=== PATIENT | male | born 1960 | race Caucasian/White ===

== ENCOUNTER 2018-02-14 12:30 | Emergency (ER) | payer SELFPAY ==
[~2018-02-14] VITALS: Ht 185.4 cm; Wt 102.1 kg
[2018-02-14] MEDS ORDERED: Tetracaine 0.5% Opth 4ml Soln RIGHT EYE ONE (13:15)
[2018-02-14] MEDS ORDERED: Fluorescein Strips RIGHT EYE ONE (13:15)
--- NOTE | 2018-02-14 14:01 | Emergency Room Report ---
History of Present Illness General Chief Complaint: Eye Problems Source: Patient Present Illness HPI 57-year-old male patient presents ER complaining of right eye pain. photophobia during this time. reports was seen by urgent care 2 days ago prescribed with acyclovir and ciprofloxacin eyedrops for treatment of symptoms. Reports history of contacts. Reports no incontinence currently. Reports pain in eye. Reports eye discharge during this time. Denies history of glaucoma. Denies fever, chest pain, shortness of breath, vision loss. Denies other acute symptoms. Denies vertigo. Not up to date on tetanus vaccinations. Denies injury or trauma. Allergies: Coded Allergies: No Known Allergies (Unverified , 02/14/18) Patient History Past Medical History: see triage record Reviewed Nursing Documentation: PMH: Agreed; PSxH: Agreed Nursing Documentation-PMH Past Medical History: No Stated History Review of Systems All Other Systems: negative except mentioned in HPI Physical Exam Vital Signs Date Time Temp Pulse Resp B/P (MAP) Pulse Ox O2 Delivery O2 Flow Rate FiO2 02/14/18 12:45 98.3 105 18 146/83 96 Room Air 98.2 Sp02 EP Interpretation: reviewed, normal General Appearance: well appearing, no apparent distress, alert, GCS 15, non- toxic Head: normocephalic, atraumatic Eyes: right eye fluoroscene uptake - 2 mm linear in 9 o clock position; bilateral eye normal inspection, bilateral eye PERRL, bilateral eye EOMI ENT: hearing grossly normal, normal pharynx, no angioedema, normal voice, uvula midline, moist mucus membranes Neck: full range of motion Respiratory: lungs clear, normal breath sounds, no rhonchi, no respiratory distress, no accessory muscle use, no wheezing, speaking full sentences Cardiovascular #1: regular rate, rhythm, no edema Gastrointestinal: non tender, soft, no mass, non-distended, no guarding, no rebound Neurologic: alert, oriented x3, responsive, motor strength/tone normal, sensory intact Psychiatric: mood/affect normal Skin: no rash Medical Decision Making PA Attestation Dr. Borrego is my supervising Physician whom patient management has been discussed with. Diagnostic Impression: Primary Impression: Corneal abrasion Additional Impression: Eye abnormality ER Course Pt. presents to the ED c/o eye pain. Ddx considered but are not limited to FB in eye, corneal abrasion, corneal ulcer , blepharitis, orbital blowout fracture, subconjunctival hemorrhage. Patient has no signs of surrounding cellulitis, no pain with eye movement, does not require imaging at this time. Vital signs: are WNL, pt. is afebrile See nurses note for visual acuity. ER COURSE: Physical exam shows corneal injection of right eye, cloudy cornea noted. Patient reports discharge from eye. 20mmHg IOP average of 3 measurements, low suspicion for glaucoma. 22mm abrasion in 9 o clock position, no uptake of stain within 5mm circular lesion in eye covering central axis of vision, possible hypopion vs cataract vs bacteria. Low suspicion for ulcer due to lack of fluorescein uptake. no dendritic lesions, no rust ring. Abrasion likely due to contact use. Discontinue using contacts. no surrounding erythema or edema, low suspicion for septal cellulitis. Does not require imaging at this time. Needs ophthalmology followup. instructed to follow-up with [facility] as previously instructed. Contact HMO provider to find ophthalmology provider to follow-up with. provided with contact information for the sr. manager corporate communications follow-up with in clinic. Contacted Dr. Jensen who states he would be willing to see patient in clinic. Informed patient that because out of network would have to pay out of pocket. if unable to be seen by PCP or ophthalmology specialist, may follow-up with [facility] for further evaluation by ophthalmology. TDAP provided. followup with radiology assistant. instructed patient to continue taking antibiotic drops as previously instructed. Do not apply directly to eye. patient seen and evaluated by Dr. Borrego. DISCHARGE: At this time pt. is stable for d/c to home. Will provide printed patient care instructions and any necessary prescriptions. Care plan and follow up instructions have been discussed with the patient prior to discharge Follow-up with sr. manager corporate communications in 24 hours. Follow-up with primary care provider in 3 -5 days. Take medications as directed. Patient questions asked and answered. ER precautions given, patient instructed to return to ER immediately for any new or worsening of symptoms. - Please note that this Emergency Department Report was dictated using [employer] and service advisor technology software, occasionally this can lead to erroneous entry secondary to interpretation by the dictation equipment. Last Vital Signs Date Time Temp Pulse Resp B/P (MAP) Pulse Ox O2 Delivery O2 Flow Rate FiO2 02/14/18 12:45 98.3 105 18 146/83 96 Room Air 98.2 Disposition: HOME, SELF-CARE Condition: Stable Patient Instructions: Corneal Abrasion, [id number] Additional Instructions: [facility] Need followup within 24 hours. Followup with primary care provider in 3 -5 days. Take medications as directed. Apply 2 drops in eyes q2hrs while awake x 2 hours then q4 hours x5 days. Do not scratch or rub eye. Do not apply drops directly to eye. Patient questions asked and answered. ER precautions given, patient instructed to return to ER immediately for any new or worsening of symptoms. James Neal Feb 14, 2018 14:01
[2018-02-14 14:22] VITALS: BP 146/83
[2018-02-14] MEDS ORDERED: Tetanus/Diptheria/Pertussis Vaccine 0.5ml Syr IM ONE (14:45)
[2018-02-14 15:30] VITALS: BP 146/83
== END 2018-02-14 15:32 | disposition home or self-care (01) ==
LOC: EMR 13:00
DX: S05.01XA Injury of conjunctiva and corneal abrasion without foreign body, right eye, initial encounter (principal); X58.XXXA Exposure to other specified factors, initial encounter; Y92.9 Unspecified place or not applicable; Z23 Encounter for immunization
CPT/HCPCS: 90471; 90715; 99283